=== PATIENT | male | born 1980 | race Hispanic/Latino ===

== ENCOUNTER 2020-11-01 12:57 | Emergency (ER) | payer SELFPAY ==
[~2020-11-01] VITALS: Ht 160 cm; Wt 108.8 kg
--- NOTE | 2020-11-01 14:52 | REP ---
INDICATION: chest pain. COMPARISON: No comparison chest x-ray TECHNIQUE: Portable upright AP chest radiograph. FINDINGS: The lungs are well inflated and free of infiltrate. Pleural angles are sharp. Heart size is normal. Pulmonary vasculature is not increased. EKG monitoring electrodes are visible. IMPRESSION: No active disease. <Electronically signed by Luciano Hutton > 11/01/20 0007
[2020-11-01 16:15] VITALS: BP 120/66
--- NOTE | 2020-11-03 07:22 | ECGEPIP ---
[facility] [place] - ED Test Date: 2020-11-01 Pat Name: DIEGO GRYA Department: Room: - Gender: Male Registered Nurse Obstetrics: cornelia : 1980 Requested By: Jean Carlos Mcdonald Order Number: [id number] Reading MD: Jean Carlos Rinaldi Measurements Intervals [place] Rate: 67 P: 12 NM: 126 QRS: 22 QRSD: 102 T: 39 QT: 394 QTc: 416 Interpretive Statements Normal sinus rhythm with sinus arrhythmia POOR R WAVE PROGRESSION NO PRIORS FOR COMPARISON Electronically Signed on 11-03-2020 7:21:48 EDT by Jean Carlos Rinaldi
== END 2020-11-01 16:26 | disposition home or self-care (01) ==
LOC: M ED 12:57
DX: R07.89 Other chest pain (principal); R73.03 Prediabetes; K21.9 Gastro-esophageal reflux disease without esophagitis